=== PATIENT | female | born 1940 | race Caucasian/White ===

== ENCOUNTER 2016-06-28 17:38 | Emergency (ER) | payer OTHER, MEDICARE ==
[~2016-06-28] VITALS: Ht 172.7 cm; Wt 108.2 kg
[2016-06-28 18:34] LABS: ADD MIUA? YES; BILIRUBIN NEGATIVE; BLOOD MODERATE; COLOR YELLOW ((YELLOW)); GLUCOSE (STRIP) NEGATIVE; KETONES NEGATIVE; LEUKOCYTES MODERATE; NITRITE POSITIVE; PROTEIN (STRIP) TRACE; SPECIFIC GRAVITY 1.021 (1.000-1.030); UROBILINOGEN 0.2 MG/DL (0.2-1.0)
[2016-06-28 18:44] LABS: EOSINOPHIL (%) 0.6 % (0-5); HEMATOCRIT 43.8 % (36.0-46.0); IMMATURE GRANULOCYTE (%) 0.1 % (0.0-0.7); IMMATURE GRANULOCYTE COUNT 0.1 K/uL; LYMPHOCYTE COUNT 0.9 K/uL (1.0-2.8); MCH 31.3 PG (29.0-34.0); MCHC 34.5 G/DL (30.0-36.0); MCV 90.9 FL (83-99); MEAN PLAT.VOLUME 10.4 uM^3 (9.5-12.4); MONOCYTE (%) 3.2 % (3-12); MONOCYTE COUNT 0.2 K/uL (0-0.8); NEUTROPHIL (%) 82.7 % (45-76); NEUTROPHIL COUNT 5.6 K/uL (1.8-6.4); PLATELET COUNT 145 K/uL (156-360); RBC DIS.WIDTH-CV 13.3 % (11.8-14.6); RBC DIS.WIDTH-SD 43.3 % (39-53); RED BLOOD COUNT 4.82 M/uL (3.80-5.20); WHITE BLOOD COUNT 6.8 K/uL (4.1-10.2)
[2016-06-28 19:18] LABS: ANION GAP 7 MEQ/L (2-14); CHLORIDE 105 MEQ/L (99-109); GLUCOSE 113 mg/dL (70-99); POTASSIUM 3.1 MEQ/L (3.7-5.4); SAMPLE HEMOLYSIS CHECK 0; SAMPLE ICTERIC CHECK 0; SAMPLE LIPEMIA CHECK 0; SODIUM 139 MEQ/L (136-147); UREA NITROGEN (BUN) 17 mg/dL (9-23)
[2016-06-28 19:26] LABS: GFR ESTIMATE (CALCULATED) > 59 mL/min/
[2016-06-28 19:53] LABS: BACTERIA 4+; CASTS NONE SEEN /LPF; CRYSTALS NONE SEEN; EPITHELIAL CELLS RARE; MUCUS 1+; RED BLOOD CELLS 0-5 /HPF (0-5); UCUL ADDED? YES; WHITE BLOOD CELLS 30-40 /HPF (0-5)
[2016-06-28] MEDS ORDERED: MACROBID100 MG PO (20:32)
[2016-06-28] MEDS ORDERED: ZOFRAN4 MG PO (20:32)
[2016-06-28 21:41] VITALS: BP 125/95
== END 2016-06-28 21:21 | disposition home or self-care (01) ==
LOC: EME 17:38
PROVIDERS: Emergency Medicine
DX: E86.0 Dehydration (principal); R11.10 Vomiting, unspecified; R19.7 Diarrhea, unspecified; E87.6 Hypokalemia; N39.0 Urinary tract infection, site not specified; R42 Dizziness and giddiness; R55 Syncope and collapse; I10 Essential (primary) hypertension
CPT/HCPCS: 70450; 80048; 81003; 85025; 87077; 87086; 87186; 93005; 99281; 99284; J7030